=== PATIENT | female | born 1975 | race Caucasian/White ===

== ENCOUNTER 2017-11-20 12:30 | Emergency (ER) | payer BC ==
--- NOTE | 2017-11-20 13:00 | UC ---
General HPI - HPI Summary HPI Summary: Patient states she noted a little bit of swelling to her right eye yesterday and a "tiny pain behind the eye". She went to the eye doctor and saw Dr. Roseline lafleur who did an extensive eye exam which was all normal. Patient states she was told it may be an allergy. She presents today for increased swelling and more pain behind her right eye. She is a contact lens wearer and is wearing the lens now. She denies any visual changes, discharge from the eye, injury to the eye, globe pain and fever as well as upper respiratory symptoms. She denies any global headache and again notes the pain is very focal behind the right eye. Nothing really makes the pain behind the eye any better or any worse. She does report some slight photophobia but reports that that is chronic and unchanged. - History of Current Complaint Stated Complaint: RIGHT EYE/SINUSES Time Seen by Provider: 11/20/17 12:53 Hx Obtained From: Patient Hx Last Menstrual Period: 12/09/12 Onset/Duration: Gradual Onset Timing: Constant Associated Signs & Symptoms: Negative: Fever, Headache, Nausea, Vomiting - Allergy/Home Medications Allergies/Adverse Reactions: Allergies Allergy/AdvReac Type Severity Reaction Status Date / Time No Known Allergies Allergy Verified 11/20/17 12:55 PMH/Surg Hx/FS Hx/Imm Hx Endocrine History: Thyroid Disease - Surgical History Surgical History: Yes Surgery Procedure, Year, and Place: RIGHT SHOULDER SURGERY, 2006 - Family History Known Family History: Positive: Other - polycyhtemia vera - Social History Occupation: Employed Full-time Substance Use Type: None Smoking Status (MU): Never Smoked Tobacco - Immunization History Vaccination Up to Date: Yes Review of Systems Constitutional: Negative Skin: Negative Eyes: Photophobia - chronic with no changes, Other - swelling around R eye and pain behind the R eye ENT: Negative Respiratory: Negative Cardiovascular: Negative Gastrointestinal: Negative Genitourinary: Negative Motor: Negative Neurovascular: Negative Musculoskeletal: Negative Neurological: Negative Psychological: Negative Is Patient Immunocompromised?: No All Other Systems Reviewed And Are Negative: Yes Physical Exam Triage Information Reviewed: Yes Appearance: Well-Appearing Vital Signs Reviewed: Yes Eyes: Positive: Other: - Visual acuity with contacts OS 20/20, OD 20/25, both eyes 20/20. There is no periorbital rash. There is mild right periorbital edema. There is no pre or post auricular adenopathy. Contact lenses removed for rest of exam. Pupils are equal round and reactive to light. Extraocular movements are intact. Upper and lower lid everted and no foreign bodies identified. Anterior chambers are clear. Globes are not firm or tender. Fluorescein stain placed right eye, no abrasions, ulcerations , dendrites or perforations. ENT: Positive: Pharynx normal, TMs normal. Negative: Nasal congestion, Nasal drainage Neck: Positive: Supple, Nontender, No Lymphadenopathy Respiratory: Positive: Lungs clear, Normal breath sounds Cardiovascular: Positive: RRR, No Murmur Abdomen Description: Positive: Nontender, No Organomegaly, Soft Bowel Sounds: Positive: Present Musculoskeletal: Positive: ROM Intact Neurological: Positive: Other: - Alert and oriented 3. Cranial nerves II through XII grossly intact. Sensory vascular motor intact 4. Normal steady gait. Psychological: Positive: Age Appropriate Behavior Skin Exam: Normal Diagnostics - Radiology No standard instances Radiology Interpretation Completed By: Radiologist - ct ORBITS W/WO, NAD. SEE THE REPORT Course/Dx - Course Course Of Treatment: globe is unremarkable. given the R periorbtal swelling, no uri and pain behind the eye, pt needs imaging to exclude retro globe pathology. I spoke to the radiologist who suggest CT orbit w/wo contrast. pt agrees to the CT. CT unremarkable. case D/W Dr Austin. will tx with po doxycycline to cover possible infection L upper lid and she will recheck pt in 2 days. pt agrees to the f/u appt. - Differential Dx - Multi-Symptom Provider Diagnoses: Acute swelling R upper periorbital region. Pain posterior to R eye. Discharge - Sign-Out/Discharge Documenting (check all that apply): Discharge/Admit/Transfer - Discharge Plan Condition: Stable Disposition: HOME Prescriptions: DOXYcycline CAP(*) [DOXYcycline 100MG CAP(*)] 100 mg PO BID #20 cap Patient Education Materials: Stye (ED), Eye Pain (ED) Forms: *Work Release Referrals: Jayden Parker MD [Primary Care Provider] - If Needed Yuki Austin MD [Medical Doctor] - Additional Instructions: FOLLOW UP DR AUSTIN AT 3:45PM THIS SUNDAY(11/22/17) SCHEDULED BY [facility] - Billing Disposition and Condition Condition: STABLE Disposition: Home
[2017-11-20 13:03] VITALS: BP 126/71
[2017-11-20] MEDS ORDERED: BSS OPTH.SOL* BTL ONE (13:04)
[2017-11-20] MEDS ORDERED: Tetracaine 0.5% OPTH.SOL 4 ML* 1 DROP BTL ONE (13:04)
[2017-11-20] MEDS ORDERED: Fluorescein Sod TOPICAL 0.6* 0.6 MG TEST OPHTHALMIC ONE ×2 (13:04)
[2017-11-20] MEDS ORDERED: Iohexol 300* (CONTRAST) 10 ML SDV IV ONE (14:52)
--- NOTE | 2017-11-20 15:07 | RAD ---
HISTORY: Pain and swelling Right COMPARISONS: MRI of the brain dated April 29, 2010 TECHNIQUE: Multiple contiguous axial CT scans were obtained of the face with and without intravenous contrast, with coronal and sagittal multiplanar reformations. FINDINGS: BONES: There is no displaced fracture or dislocation. The orbital rim is intact. The zygomatic arch is intact. The pterygoid plates are intact. ORBITS: The globes are round. The optic nerves are symmetric. The extraocular musculature is normal. There is no post septal or intraconal inflammatory change. There is no retrobulbar hematoma. PARANASAL SINUSES: The paranasal sinuses are clear. BRAIN AND SOFT TISSUE: Unremarkable. OTHER: There is no abnormal enhancement. IMPRESSION: UNREMARKABLE CT OF THE ORBITS. THERE IS NO ABNORMAL ENHANCEMENT. THERE IS NO POST SEPTAL OR INTRACONAL INFLAMMATORY CHANGE.
== END 2017-11-20 15:36 | disposition home or self-care (01) ==
LOC: UCCORT 12:30
DX: H05.221 Edema of right orbit (principal); H57.11 Ocular pain, right eye
CPT/HCPCS: 70482; 99212; A9270-GY; G0463; Q9967

== ENCOUNTER 2018-03-08 09:14 | Emergency (ER) | payer BC, OTHER ==
[2018-03-08 10:12] VITALS: BP 110/81
--- NOTE | 2018-03-08 11:07 | UC ---
Lower Extremity/Ankle HPI - HPI Summary HPI Summary: Pt presents with left ankle pain. Pt was running yesterday and inverted in a hole Pt has applied ice, used an michelle wrap and has a cam boot. Pt states progressive edema lateral malleolus. 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 Pt states has sprained same ankle previous pt medications reviewed this visit - History of Current Complaint Chief Complaint: UCLowerExtremity Stated Complaint: LEFT ANKLE COMPLAINT Time Seen by Provider: 03/08/18 10:55 Hx Obtained From: Patient Hx Last Menstrual Period: 02/28/18 Onset/Duration: Sudden Onset Pain Intensity: 2 - Allergies/Home Medications Allergies/Adverse Reactions: Allergies Allergy/AdvReac Type Severity Reaction Status Date / Time No Known Allergies Allergy Verified 03/08/18 10:08 PMH/Surg Hx/FS Hx/Imm Hx Previously Healthy: Yes - Surgical History Surgical History: Yes Surgery Procedure, Year, and Place: RIGHT SHOULDER SURGERY, 2006 - Family History Known Family History: Positive: Other - polycyhtemia vera - Social History Occupation: Employed Full-time Lives: With Family Alcohol Use: None Substance Use Type: None Smoking Status (MU): Never Smoked Tobacco Length of Time of Smoking/Using Tobacco: 1 PPD x 9 Years When Did the Patient Quit Smoking/Using Tobacco: 2002 - Immunization History Most Recent Tetanus Shot: UTD Vaccination Up to Date: Yes Review of Systems Constitutional: Negative Skin: Negative Musculoskeletal: Other: - left ankle All Other Systems Reviewed And Are Negative: Yes Physical Exam - Summary Physical Exam Summary: Vital Signs Reviewed: Yes A+Ox3, no distress Eyes: Conjunctiva Clear ENT: Hearing grossly normal neck: supple Respiratory: Positive: No respiratory distress, No accessory muscle use Cardiovascular: skin color reflect adequate perfusion Musculoskeletal Exam: LLE: + SLE + flex/ext knee + flex/ext ankle with pain lateral aspect + edema + TTP inferior, anterior malleolus no crepitus no pain base 5th no prox tib/fib pain Neurological: Positive: Alert, ambulatory with limp Psychological: Positive: Normal Response To Family Skin: Positive: no rash, no ecchymosis + edema lateral mall left Triage Information Reviewed: Yes Vital Signs: Initial Vital Signs Temp 97.9 F 03/08/18 10:08 Pulse 80 03/08/18 10:08 Resp 16 03/08/18 10:08 BP 110/81 03/08/18 10:08 Pulse Ox 100 03/08/18 10:08 Diagnostics - Radiology No standard instances Radiology Interpretation Completed By: Radiologist - Patient Name: NGHIA KIRKPATRICK Medical Record#: [id number] Ordering Physician: Moni Ochoa MD Acct.#: [id number] : 1975 Age: 43 Sex: F Location: [facility] Exam Date: 03/08/18 110 ADM Status: REG ER Order Information: ANKLE LEFT 3+VWS Accession Number: [id number] CPT: 42897 Indication: Lateral malleolus pain following inversion injury running. Comparison: No relevant prior exams available on the [facility] PACS for comparison. Technique: AP, mortise, and lateral views LEFT ankle. Report: Soft tissue swelling over the lateral malleolus and talocrural joint effusion. No fracture, osteochondral lesion, or articular malalignment. IMPRESSION: #. Consider lateral supporting ligament injury. <Electronically signed by Jori Alston MD in OV> 03/08/18 112 Dictated By: Jori Alston MD Dictated Date/Time: 03/08/18 112 Transcribed Date/Time: 03/08/18 112 Copy to: CC:Jayden Parker MD; Moni Ochoa MD Imaging - [facility] [address] [place] [address] ph ([phone]) ph ([phone]) ph ([phone]) This report is only to be considered final once signed by the Provider(s) as displayed in the "< Electronically Signed by >" field (s). Absence of a signature indicates the report is in a draft status and still needs to be finalized. In the event this document was created by someone other than the signing Provider, the individual initiating the document will be listed in the "Entered by:" or "Dictated by:" brooks. 1 of 1 Lower Extremity Course/Dx - Course Course Of Treatment: Pt with left lateral malleolus ankle pain s/p inversion. imaging no fx, suggest ligamentous injury. pt has cructches, michelle, cam boot. recommend use above until walk without limp. will give airsplint for prn. motrn/apap. rest. elevate. sports med/ortho f/u - Differential Dx/Diagnosis Provider Diagnoses: left ankle sprain Discharge - Sign-Out/Discharge Documenting (check all that apply): Patient Departure All imaging exams completed and their final reports reviewed: Yes - Discharge Plan Condition: Stable Disposition: HOME Patient Education Materials: Ankle Sprain (ED) Forms: *Work Release Referrals: Jayden Parker MD [Primary Care Provider] - Sai Lynn MD [Medical Doctor] - [facility] [Provider Group] Additional Instructions: -wear michelle wrap or walking boot for comfort and support -apply ice (20 min at a time) every 2-3 hours for the next 2 days -use crutches until you can walk normally without a limp -Elevate your leg - this will help with swelling and pain - Alternate ibuprofen (advil, Motrin) 600mg and tylenol every 3 hours for pain. Take with food. Do NOT take for more than 4-5 days -Contact your doctor, orthopedic provider, or sport medicine doctor to arrange a follow-up appointment next week. Contact your doctor or return with questions or concerns - Billing Disposition and Condition Condition: STABLE Disposition: Home
--- NOTE | 2018-03-08 11:32 | RAD ---
Indication: Lateral malleolus pain following inversion injury running. Comparison: No relevant prior exams available on the [facility] PACS for comparison. Technique: AP, mortise, and lateral views LEFT ankle. Report: Soft tissue swelling over the lateral malleolus and talocrural joint effusion. No fracture, osteochondral lesion, or articular malalignment. IMPRESSION: #. Consider lateral supporting ligament injury.
== END 2018-03-08 11:35 | disposition home or self-care (01) ==
LOC: UCCORT 09:14
DX: S93.402A Sprain of unspecified ligament of left ankle, initial encounter (principal); X50.0XXA Overexertion from strenuous movement or load, initial encounter; Y92.9 Unspecified place or not applicable
CPT/HCPCS: 99211; G0463